=== PATIENT | male | born 2000 | race Caucasian/White ===

== ENCOUNTER 2022-03-01 15:47 | Emergency (ER) | payer OTHER ==
[2022-03-01 15:56] VITALS: TEMP 98.7
[2022-03-01] MEDS ORDERED: IBUPROFEN 600 MG TAB PO STA (16:27)
--- NOTE | 2022-03-01 16:28 | ED ---
General Adult HPI - General Chief complaint: Extremity Injury, Lower Stated complaint: left leg injury Time Seen by Provider: 03/01/22 16:07 Source: patient, RN notes reviewed Mode of arrival: ambulatory Limitations: no limitations - History of Present Illness Initial comments: This is a pleasant 22-year-old male who presents to the emergency Department with complaints of left knee pain. Patient states he slipped and fell on the ice yesterday striking his knee on the ground. States a short time later his knee buckled and he fell again on the affected side. Complains of increased pain with weightbearing. States he is unable to fully extend his leg due to pain and tightness. Also has limited flexion of the left knee as well. No pain with palpation. Did not take anything to treat his symptoms prior to arrival. Denies any other injuries or concerns at this time. - Related Data Previous Rx's Medication Instructions Recorded Ibuprofen [Motrin] 600 mg PO Q8HR PRN #30 tab 03/01/22 Allergies Allergy/AdvReac Type Severity Reaction Status Date / Time No Known Allergies Allergy Verified 03/01/22 15:56 Review of Systems ROS Statement: Those systems with pertinent positive or pertinent negative responses have been documented in the HPI. ROS Other: All systems not noted in ROS Statement are negative. Past Medical History Past Medical History: No Reported History History of Any Multi-Drug Resistant Organisms: None Reported Past Surgical History: No Surgical Hx Reported Past Psychological History: No Psychological Hx Reported Smoking Status: Never smoker Past Alcohol Use History: Occasional Past Drug Use History: Marijuana General Exam Limitations: physical limitation (Ambulating with a cane due to left knee pain) General appearance: alert, in no apparent distress Respiratory exam: Present: normal lung sounds bilaterally. Absent: respiratory distress, wheezes, rales, rhonchi, stridor, chest wall tenderness Cardiovascular Exam: Present: regular rate, normal rhythm, normal heart sounds. Absent: systolic murmur, diastolic murmur, rubs, gallop, clicks Left Upper Leg exam: Present: normal inspection, full ROM. Absent: tenderness, swelling Knee exam: Present: swelling (mild generalized swelling when compared with right), pain/laxity with valgus. Absent: full ROM (slightly limited flexion and extension), tenderness, abrasion, laceration, ecchymosis, deformity, crepitus, dislocation, erythema Lower Leg exam: Present: normal inspection, full ROM. Absent: tenderness, swelling Ankle exam: Present: normal inspection, full ROM. Absent: tenderness, swelling Foot/Toe exam: Present: normal inspection, full ROM Neurovascular tendon exam: Present: no vascular compromise. Absent: pulse deficit, abnormal cap refill Back exam: Present: normal inspection, full ROM Neurological exam: Present: alert, oriented X3 Psychiatric exam: Present: normal affect, normal mood Course Vital Signs 03/01/22 03/01/22 15:51 18:20 Temperature 98.7 F Pulse Rate 114 H 84 Respiratory 20 18 Rate Blood Pressure 144/85 146/85 O2 Sat by Pulse 96 99 Oximetry - Reevaluation(s) Reevaluation #1: 03/01/22 18:00 Updated on results. Kumar wrap applied. Instructed on follow-up care. Procedures - Orthopedic Splinting/Casting Injury #1 Side: left Lower Extremity Injury Location: knee Lower Extremity Immobilizer: Kumar wrap Additional Comments: Neurovascular status intact after application of Kumar wrap. Patient instructed on appropriate use. He verbalizes understanding. Medical Decision Making - Medical Decision Making 22-year-old male presents to the emergency department with complaints of left knee pain. Upon exam, patient is well-appearing and in no acute distress. He has mild impairment of range of motion due to discomfort. No significant swelling or abnormality. X-ray was obtained and was unremarkable. Kumar wrap was applied. Patient was given Motrin with some improvement. He will be discharged home with instructions to rest, ice, maintain compression, and elevate the affected extremity while at rest. Encourage to follow up with PCP upon his return home. Return parameters discussed in detail. Patient verbalizes understanding and agrees with this plan. Attending: Danial Was pt. sent in by a medical professional or institution? @ No Did you speak to anyone other than the patient for history? @ No Did you review nursing and triage notes? @ Yes, agree Were old charts reviewed? @ No Differential Diagnosis? @ Contusion, left knee; soft tissue injury left knee; dislocation left knee EKG interpreted by me (3pts min.)? @Not applicable X-rays interpreted by me (1pt min.)? @ X-ray interpreted by me shows no osseous deformity CT interpreted by me (1pt min.)? @ Not applicable U/S interpreted by me (1pt. min.)? @ Not applicable What testing was considered but not performed? (CT, X-rays, U/S, labs)? Why? @ None What meds were considered but not given? Why? @ None Did you discuss the management of the patient with other professionals? @ No Did you reconcile home meds? @ No Was smoking cessation discussed for >3mins.? @No Was critical care preformed (if so, how long)? @ No Were there social determinants of health that impacted care today? How? (Homelessness, low income, unemployed, alcoholism, drug addiction, transportation, low edu. Level, literacy, decrease access to med. care, senior care, rehab)? @ Patient was from out of town and therefore was unable to follow up with his PCP until he returns Was there de-escalation of care discussed even if they declined? (Discuss DNR or withdrawal of care, Hospice)? @ No What co-morbidities impacted this encounter? (DM, HTN, Smoking, COPD, CAD, Cancer, CVA, Hep., AIDS, mental health diagnosis, sleep apnea, morbid obesity)? @ None Was patient admitted / discharged? @ Discharged Undiagnosed new problem with uncertain prognosis? @ No Drug Therapy requiring intensive monitoring for toxicity (Heparin, Nitro, Insulin, Cardizem)? @ No Were any procedures done? @ No Diagnosis/symptom? @ Left knee injury Acute, or Chronic, or Acute on Chronic? @ Acute Uncomplicated (without systemic symptoms) or Complicated (systemic symptoms)? @ Uncomplicated Side effects of treatment? @ None Exacerbation, Progression, or Severe Exacerbation] @ Not applicable Poses a threat to life or bodily function? @ No - Radiology Data Radiology results: image reviewed Interpreted by me: Per my interpretation, there is no evidence of acute fracture or dislocation. X-ray of the left knee was obtained. Report was reviewed in its entirety. Impression per Dr. Agustin is negative left knee exam. Disposition Clinical Impression: Left knee pain Disposition: HOME SELF-CARE Condition: Stable Instructions (If sedation given, give patient instructions): Knee Pain (ED) Additional Instructions: RICE: rest, ice (no more than 20 minutes per hour), compression (kumar wrap), elevation (while at rest) Take Motrin if needed for pain. Follow-up with your PCP next week as needed. Return to the emergency department with any new, worsening, or concerning symptoms. Prescriptions: Ibuprofen [Motrin] 600 mg PO Q8HR PRN #30 tab PRN Reason: Pain Is patient prescribed a controlled substance at d/c from ED?: No Referrals: None,Stated [REFERRING] - 1-2 days Time of Disposition: 18:07
--- NOTE | 2022-03-01 17:31 | XR ---
EXAMINATION TYPE: XR knee complete LT DATE OF EXAM: 03/01/2022 COMPARISON: NONE HISTORY: Knee pain TECHNIQUE: 4 views FINDINGS: I see no fracture nor dislocation. Joint spaces are normal. No pathologic calcification. No sign of joint effusion. IMPRESSION: Negative left knee exam.
[2022-03-01 18:21] VITALS: BP 146/85; PULSE 84; RESP 18
== END 2022-03-01 18:21 | disposition home or self-care (01) ==
LOC: EC 15:47
DX: M25.561 Pain in right knee (principal); F12.90 Cannabis use, unspecified, uncomplicated; W00.0XXA Fall on same level due to ice and snow, initial encounter; Y92.009 Unspecified place in unspecified non-institutional (private) residence as the place of occurrence of the external cause
CPT/HCPCS: 99283